=== PATIENT | male | born 1955 | race Caucasian/White ===

== ENCOUNTER 2025-07-03 08:20 | Emergency (ER) | payer OTHER, SELFPAY ==
--- NOTE | ~2025-07-03 | XR_ITS ---
Examination: XR chest 2V Clinical History: acute cough Comparison: None Technique: PA and Lateral Findings: Cardiomediastinal silhouette normal size and configuration. Lungs clear. No acute bony abnormality. IMPRESSION: 1. No acute cardiopulmonary findings. Reviewed, dictated and finalized at location R. CTOR APPOINTMENT
[2025-07-03 08:29] VITALS: BP 157/94; PULSE 83; RESP 18; TEMP 36.5; O2SAT 98
--- NOTE | 2025-07-03 08:51 | ED.URI ---
HPI - URI/Sore Throat General Chief Complaint: Upper Respiratory Infection Stated Complaint: Cough/Nasal Congestion Time Seen by Provider: 07/03/25 08:51 Source: patient, RN notes reviewed and old records reviewed Mode of arrival: ambulatory Limitations: no limitations History of Present Illness HPI Narrative: 69-year-old male who presents to [facility] with complaints of cough congestion with deep hacking cough that is non productive and states it has settled in chest with some dyspnea with exertion since Friday. Patient reports that he also has some nasal congestion and drainage denies any sore throat or any ear pain. Patient reports that he has felt bad but has not had any known fevers. Patient reports that he has been taking Coricidin brand decogestant. MD elicited complaint: cough, rhinorrhea and nasal congestion Onset (ago): day(s) (day 3 of symptoms) Severity: moderate Able to tolerate fluids by mouth: Yes Treatments prior to arrival: other (coricidin) Related Data Home Medications ?Medication ?Instructions ?Recorded ?Confirmed ?Last Taken ?Type allopurinol 100 mg tablet mg 07/03/25 Unknown History atorvastatin 10 mg tablet mg 07/03/25 Unknown History lisinopril 40 mg tablet mg 07/03/25 Unknown History metoprolol succinate 50 mg mg PO 07/03/25 Unknown History tablet,extended release 24 hr spironolactone 50 mg tablet mg 07/03/25 Unknown History tadalafil 20 mg tablet mg 07/03/25 Unknown History Allergies Allergy/AdvReac Type Severity Reaction Status Date / Time No Known Allergies Allergy Verified 07/03/25 08:47 Review of Systems Review of Systems: CONSTITUTIONAL: reports malaise, no hills, sweats, or fever. EYES: Denies visual changes, redness, or discharge. ENT: Reports rhinorrhea, congestion, sinus pain, no otalgia and no sore throat. CARDIOVASCULAR: Denies chest pain, palpitations, or edema. RESPIRATORY: Reports acute hacking cough.?reports dyspnea with exertion. GASTROINTESTINAL: Denies abdominal pain, nausea, vomiting, diarrhea SKIN: Denies rash or itching. MUSCULOSKELETAL:reports myalgia. NEUROLOGIC: Denies headache. All systems reviewed & are unremarkable except as noted in HPI and below PMFSH Past Medical History Medical History (Updated 07/04/25 @ 16:26 by Gayathri Tolentino APRN) Pneumonia Hypertension Elevated serum cholesterol Gout Social History Social History (Updated 07/04/25 @ 16:27 by Gayathri Tolentino APRN) Additional smoking assessment comments: Patient reports no tobacco use Alcohol intake: current Alcohol use details: social Substance use type: does not use Living arrangements: with family Gender identity (if verbalized by the patient): Male Comments At time of signature, agree with nursing past medical, surgical, social and family history. There is no relevant family history pertinent to the presenting complaint Exam Narrative: GENERAL:ill-appearing, well-nourished, and in no acute distress. HEAD: Normocephalic EYES: PERRLA, conjunctivae clear ENT: Nares clear, turbinates edematous and erythematous, clear discharge, sinus pressure . Mucous membranes moist. TM pearly de la cruz with dull light reflex bilaterally; no tragal tenderness. Oropharynx erythematous without lesions. Tonsils not enlarged and without exudate, no drooling, no hoarseness, no trismus, uvula midline. NECK: Supple. No lymphadenopathy CHEST: Decreased to auscultation, breath sounds equal. No wheezing, rhonchi, rales, or stridor. No respiratory distress, speaks in full sentences. hacking cough nonproductive, SAO2 98% on room air HEART: Regular rate and rhythm. No murmur heard. SKIN: Warm, dry, no rash. NEURO: Alert and oriented x3. PSYCH: Normal mood and affect Course Course Level of Care: Express Care Visit Vital Signs Vital signs: Vital Signs Temperature 36.5 C 07/03/25 08:29 Pulse Rate 83 07/03/25 08:29 Respiratory Rate 18 07/03/25 08:29 Blood Pressure 157/94 H 07/03/25 08:29 Pulse Oximetry 98 07/03/25 08:29 Oxygen Delivery Room Air 07/03/25 08:29 Temperature 36.5 C 07/03/25 08:29 Pulse Rate 83 07/03/25 08:29 Respiratory Rate 18 07/03/25 08:29 Blood Pressure 157/94 H 07/03/25 08:29 Pulse Oximetry 98 07/03/25 08:29 Oxygen Delivery Room Air 07/03/25 08:29 reviewed MDM MDM Narrative Medical decision making narrative: 69 year old male who presents to express care with cough and congestion sinus pain with drainage some body aches with no fevers noted since Friday. Patient tested positive for Influenza A. Patient wishes to be treated with Tamiflu and prednisone for acute cough, chest x=ray negative for pneumonia or pleural effusion. Patient is appropriate for outpatient care with follow up. Anticipatory guidance and reasons to seek care in the ED reviewed with patient understanding voiced. Differential Diagnosis Differential Diagnosis: Differential diagnostic considerations for upper respiratory infection include upper respiratory infection, croup, otitis media, sinusitis, viral infection, bronchitis, influenza, pharyngitis, strep, uvulitis.? Lab Data MDM Lab Attestation statement: I personally reviewed the patient's lab results. Lab results narrative: influenza A positive, influenza B negative COVID antigen negative Labs: Lab Results 07/03/25 Range/Units 08:53 POC Influenza A Ag Positive (Negative) POC Influenza B Ag Negative (Negative) reviewed Imaging Data Attestation: I personally reviewed and interpreted this imaging study as follows: My impression: no acute cardiopulmonary findings Radiologist's impression: ITS Impressions Chest X-Ray 07/03/25 09:13 IMPRESSION: 1. No acute cardiopulmonary findings. Chi Stahl??69??M??1955 ? Allergy/Adv: No Known Allergies [facility] [address] [employer] [place] [id number] XRay Report Signed Patient: Chi Stahl : 1955 MR#: [id number] Age: 69 Acct:[id number] Loc: [facility] ADM Date: 07/03/[address]: Ordering Physician: Gayathri Tolentino APRN Date of Service: 07/03/25 Procedure(s): XR chest 2V Accession Number(s): [id number] cc: Gayathri Tolentino APRN~ Examination: XR chest 2V Clinical History: acute cough Comparison: None Technique: PA and Lateral Findings: Cardiomediastinal silhouette normal size and configuration. Lungs clear. No acute bony abnormality. IMPRESSION: 1. No acute cardiopulmonary findings. Reviewed, dictated and finalized at location R. ETIC SURGEON Please be advised this is a medical document. It is intended for [id number] communication. It is written in medical language and may contain unfamiliar abbreviations or verbiage. Medical documents are intended to carry relevant information, facts as evident, and the clinical opinion of the practitioner at the time of the encounter. This report may have been done utilizing a voice recognition system. Attempts have been made to correct errors. However, there may be uncorrected grammatical, spelling, and recognition errors present. The file time of this note does not necessarily represent the time of service. Dictated By: Dwaine Mccrary MD 07/03/25 0913 Signed By: <Electronically signed by Dwaine Mccrary MD in OV> Critical Care Time Critical Care Time Critical Care Time: No Discharge Plan Discharge Clinical Impression: Influenza A Patient Disposition: Home Condition: Stable Instructions: Antibiotic Form, Influenza (ED) Additional Instructions: Increase fluids especially juices and water [id number] cough and cold medicine of your choice for your symptoms Zyrtec Claritin or Susan daily include Coricidin brand decongestant Mucinex Steroids as directed--take with food heat to the face 20-30 minutes 4-6 times a day for pain Salt water gargles, throat lozenges or throat sprays as desired Tamiflu per patient request If your symptoms persist, change or worsen significantly before you can contact your personal physician then please, without delay, go to the emergency department for further evaluation. Follow-up with PCP in 7-10 days or sooner if needed Follow up with PCP soon in regards to your blood pressure which is elevated above threshold for referral. Blood pressure above 120/80 may indicate pre-hypertension. 157/94 Patient Language: Occitan Prescriptions: New oseltamivir [Tamiflu] 75 mg capsule 75 mg PO Q12H 5 Days Qty: 10 0RF prednisone 20 mg tablet 40 mg PO DAILY 5 Days Qty: 10 0RF No Action atorvastatin 10 mg tablet metoprolol succinate 50 mg tablet extended release 24 hr PO allopurinol 100 mg tablet lisinopril 40 mg tablet spironolactone 50 mg tablet tadalafil 20 mg tablet Follow-up/Referrals: PHYSICIAN NOT ON STAFF,NONSTAFF [Primary Care Provider] Time of Disposition: 09:26 Quality Andrew Coma Scale Eyes: Open Verbal: Oriented and Alert Motor: Follows Commands Brenda Coma Total Score: 15
[2025-07-03 08:55] LABS: EDINFLUASCREEN Positive (Negative); EDINFLUBSCREEN Negative (Negative)
== END 2025-07-03 09:45 | disposition home or self-care (01) ==
PROVIDERS: Emergency Provider Registered Nurse
DX: J10.1 Influenza due to other identified influenza virus with other respiratory manifestations (principal); I10 Essential (primary) hypertension; E78.00 Pure hypercholesterolemia, unspecified; M10.9 Gout, unspecified
CPT/HCPCS: 71046; 87804; 99203; G0463